=== PATIENT | male | born 1960 | race Caucasian/White ===

== ENCOUNTER 2022-02-27 13:28 | Emergency (ER) | payer OTHER ==
[~2022-02-27] VITALS: Ht 188 cm; Wt 117.9 kg
[2022-02-27] MEDS ORDERED: ONDANSETRON 4 MG/2 ML (SDV) Z0FRAN IVP STA (13:40)
[2022-02-27] MEDS ORDERED: KETOROLAC 30 MG/ML VIAL IVP STA (13:40)
[2022-02-27] MEDS ORDERED: NS IV 1000 ML 1,000 ML IV STA (13:40)
[2022-02-27] MEDS ORDERED: ASPIRIN 81 MG CHEW (CHILDREN'S ASA) PO ONE (13:45)
[2022-02-27 13:48] LABS: BASOPHILS % (AUTO) 0 % (0-10); EOSINOPHILS % (AUTO) 0 % (0-10); HEMATOCRIT 39 % (40-54); LYMPHOCYTES % (AUTO) 11 % (12-44); MEAN CORPUSCULAR HEMOGLOBIN 31 pg (25-34); MEAN CORPUSCULAR HGB CONC 36 g/dL (32-36); MEAN CORPUSCULAR VOLUME 86 fL (80-99); MEAN PLATELET VOLUME 10.1 fL (9.0-12.2); MONOCYTES # (AUTO) 0.7 10^3/uL (0.0-1.0); MONOCYTES % (AUTO) 8 % (0-12); NEUTROPHILS # (AUTO) 7.3 10^3/uL (1.8-7.8); NEUTROPHILS % (AUTO) 80 % (42-75); PLATELET COUNT 149 10^3/uL (130-400); WHITE BLOOD COUNT 9.2 10^3/uL (4.3-11.0)
--- NOTE | 2022-02-27 13:48 | ED Chest Pain ---
General Chief Complaint: Chest Wall Stated Complaint: CHEST PAIN; LT ARM NUMBNESS Source: patient, spouse Exam Limitations: no limitations History of Present Illness Date Seen by Provider: Feb 27, 2022 Time Seen by Provider: 13:30 Initial Comments 61-year-old male presenting with complaints of left-sided rib and chest pain radiating to his left shoulder and left arm numbness/tingling. He reports the arm numbness/tingling he gets from time to time. He states he fell last night and feels like he broke ribs on the left side of his chest. He denies hitting his head or losing consciousness. He denies other injuries from the fall. He states since this morning when he woke up he was feeling like he had pain going into his left shoulder from the chest. He also has had "indigestion" and nausea all day. He had tried taking 400 mg of ibuprofen at 7 AM and again at 11 AM. He also took his blood pressure medications. He states he has had previous evaluation for cardiac problems about 15 years ago and told that everything looked okay. He does follow with a branch service representative, Dr. Santiago, but states that is because of his blood pressure only. Since he continued to have pain and was having the nausea he came in to be evaluated from a heart standpoint. Timing/Duration: constant, 12-24 hours Severity/Quality: moderate, ingestion, sharp Location: other (left side of chest into left shoulder) Radiation: shoulders (left) Activities at Onset: other (after fall last night that injured ribs) Prior CP/Workup: non-cardiac (prior work up in the past and he reports he was told he had no heart problems) Modifying Factors: worse with breathing, worse with coughing, worse with movement ASA po STEEPING PRESS TENDER: No NTG SL STEEPING PRESS TENDER: No Associated Symptoms: No abdominal pain, No back pain, No diaphoresis, No dizziness, No edema, No fatigue, No fever/chills, No headache; heartburn, nausea/vomiting (nausea but no emesis); No rash, No shortness of breath, No swelling/lump in chest, No syncope, No weakness Allergies and Home Medications Allergies Coded Allergies: No Known Drug Allergies (Unverified , 02/27/22) Patient Home Medication List Home Medication List Reviewed: Yes Ondansetron (Ondansetron Odt) 4 Mg Tab.rapdis, 4 MG PO Q6H PRN for NAUSEA/VOMITING Prescribed by: APOLINAR DRIVERRT on 02/27/22 1515 Oxycodone HCl/Acetaminophen (Oxycodone-Acetaminophen 5-325) 5 Mg-325 Mg Tablet, 1 EACH PO Q4H PRN for PAIN-SEVERE (8-10) Prescribed by: APOLINAR DRIVERRT on 02/27/22 1516 Review of Systems Review of Systems Constitutional: No chills, No diaphoresis, No dizziness, No fever EENTM: No Symptoms Reported Respiratory: See HPI Cardiovascular: See HPI Gastrointestinal: See HPI Genitourinary: No Symptoms Reported Musculoskeletal: see HPI Skin: No change in color (no bruising) Psychiatric/Neurological: Paresthesia (tingling in Left arm) Endocrine: No Symptoms Reported Hematologic/Lymphatic: Denies Blood Clots Past Eizlzel-Bntrbq-Gepujg Hx Past Medical History Surgery/Hospitalization HX: Hypertension Physical Exam Vital Signs Vital Signs - First Documented 02/27/22 02/27/22 13:30 13:42 Temp 36.6 Pulse 104 Resp 16 B/P (MAP) 179/91 (120) Pulse Ox 94 O2 Delivery Room Air Capillary Refill : Height, Weight, BMI Height: '" Weight: lbs. oz. kg; BMI Method: General Appearance: No Apparent Distress, Obese HEENT: PERRL/EOMI, Pharynx Normal Neck: Full Range of Motion, Normal Inspection, Non Tender, Supple Respiratory: No Chest Non Tender (tender to palpation left lower lateral ribs. no crepitus or step off); Lungs Clear, Normal Breath Sounds, No Accessory Muscle Use, No Respiratory Distress Cardiovascular: Regular Rate, Rhythm, No Edema, No Murmur, Normal Peripheral Pulses Gastrointestinal: Normal Bowel Sounds, No Pulsatile Mass, Non Tender, Soft Rectal: Deferred Extremity: Normal Capillary Refill, Normal Inspection, No Pedal Edema Neurologic/Psychiatric: Alert, Oriented x3, provisioning analyst II-XII Norm as Tested Skin: Normal Color, Warm/Dry Images 1 - pain to palpation left lower lateral ribs without crepitus or step off Progress/Results/Core Measures Results/Orders Lab Results Laboratory Tests Test 02/27/22 13:41 Range/Units White Blood Count 9.2 4.3-11.0 10^3/uL Red Blood Count 4.53 4.30-5.52 10^6/uL Hemoglobin 14.0 13.3-17.7 g/dL Hematocrit 39 L 40-54 % Mean Corpuscular Volume 86 80-99 fL Mean Corpuscular Hemoglobin 31 25-34 pg Mean Corpuscular Hemoglobin Concent 36 32-36 g/dL Red Cell Distribution Width 12.4 10.0-14.5 % Platelet Count 149 130-400 10^3/uL Mean Platelet Volume 10.1 9.0-12.2 fL Immature Granulocyte % (Auto) 0 % Neutrophils (%) (Auto) 80 H 42-75 % Lymphocytes (%) (Auto) 11 L 12-44 % Monocytes (%) (Auto) 8 0-12 % Eosinophils (%) (Auto) 0 0-10 % Basophils (%) (Auto) 0 0-10 % Neutrophils # (Auto) 7.3 1.8-7.8 10^3/uL Lymphocytes # (Auto) 1.0 1.0-4.0 10^3/uL Monocytes # (Auto) 0.7 0.0-1.0 10^3/uL Eosinophils # (Auto) 0.0 0.0-0.3 10^3/uL Basophils # (Auto) 0.0 0.0-0.1 10^3/uL Immature Granulocyte # (Auto) 0.0 0.0-0.1 10^3/uL Prothrombin Time 12.5 12.2-14.7 SEC INR Comment 0.9 0.8-1.4 Activated Partial Thromboplast Time 26 24-35 SEC Sodium Level 131 L 135-145 MMOL/L Potassium Level 4.0 3.6-5.0 MMOL/L Chloride Level 98 98-107 MMOL/L Carbon Dioxide Level 22 21-32 MMOL/L Anion Gap 11 5-14 MMOL/L Blood Urea Nitrogen 9 7-18 MG/DL Creatinine 0.69 0.60-1.30 MG/DL Estimat Glomerular Filtration Rate 107 BUN/Creatinine Ratio 13 Glucose Level 127 H 70-105 MG/DL Calcium Level 9.2 8.5-10.1 MG/DL Corrected Calcium 8.9 8.5-10.1 MG/DL Magnesium Level 2.0 1.6-2.4 MG/DL Total Bilirubin 0.7 0.1-1.0 MG/DL Aspartate Amino Transf (AST/SGOT) 17 5-34 U/L Alanine Aminotransferase (ALT/SGPT) 21 0-55 U/L Alkaline Phosphatase 48 40-136 U/L Myoglobin 38.5 <72.0 NG/ML Troponin I < 0.30 <0.30 NG/ML Pro-B-Type Natriuretic Peptide 157.3 H <125.0 PG/ML Total Protein 6.8 6.4-8.2 GM/DL Albumin 4.4 3.2-4.5 GM/DL Lipase 18 8-78 U/L My Orders Orders - APOLINAR ROJAS MD Cbc With Automated Diff (02/27/22 13:40) Magnesium (02/27/22 13:40) Ekg Tracing (02/27/22 13:40) Comprehensive Metabolic Panel (02/27/22 13:40) Myoglobin Serum (02/27/22 13:40) Protime With Inr (02/27/22 13:40) Partial Thromboplastin Time (02/27/22 13:40) O2 (02/27/22 13:40) Monitor-Rhythm Ecg Trace Only (02/27/22 13:40) Aspirin Chewable Tablet (Baby Aspirin Ch (02/27/22 13:45) Ed Iv/Invasive Line Start (02/27/22 13:40) Lipase (02/27/22 13:40) Troponin I Fs (02/27/22 13:40) Probnp Fs (02/27/22 13:40) Ribs/Unilateral With Chest (02/27/22 13:40) Ondansetron Injection (Zofran Injectio (02/27/22 13:40) Ketorolac Injection (Toradol Injection) (02/27/22 13:40) Ns Iv 1000 Ml (Sodium Chloride 0.9%) (02/27/22 13:40) Incentive Spirometry (Nursing) Q2H (02/27/22 14:56) Morphine Injection (Morphine Injection (02/27/22 15:09) Medications Given in ED Current Medications Medications Dose Ordered Sig/Attila Route Start Time Stop Time Status Last Admin Dose Admin Aspirin 324 mg ONCE ONCE PO 02/27/22 13:45 02/27/22 13:46 DC 02/27/22 13:47 324 MG Vital Signs/I&O 02/27/22 02/27/22 02/27/22 13:30 13:42 15:31 Temp 36.6 Pulse 104 94 Resp 16 17 B/P (MAP) 179/91 (120) 166/82 Pulse Ox 94 96 O2 Delivery Room Air Room Air Room Air Progress Progress Note #1: Progress Note Obtain electrocardiogram as well as blood work and labs including cardiac enzymes. Chest x-ray with rib films to evaluate for possible fracture or pneumothorax or pleural effusion or infiltrate. Give normal saline 1 L IV fluid bolus for hydration, Zofran 4 mg IV for nausea, Toradol 30 mg IV for rib and chest pain, aspirin 324 mg p.o. for possible cardiac source of pain. Differential diagnosis includes musculoskeletal chest wall pain, Fractured rib, pneumothorax, myocardial infarction, hypertensive urgency, anxiety Progress Note #2: Progress Note Labs are all stable without acute significant abnormality. Chemistry panel and cardiac enzymes show no acute significant abnormality or elevation after over 6 hours of pain. Chest x-ray shows rib fractures of the 10th and 11th posterior rib. There is no pneumothorax or pleural effusion. His blood pressure is elevated and may be secondary to the rib fractures and pain. With negative cardiac enzymes will try treating the pain and counseled on follow-up and return precautions. Use IS to help with expanding lungs to help prevent pneumonia. Pain medicine to help treat for pain and have him check with clinic for continued pain control. Alternate ice and heat to ribs. Initial ECG Impression Date: Feb 27, 2022 Initial ECG Impression Time: 13:34 Initial ECG Rate: 102 Initial ECG Rhythm: S.Tach Initial ECG Comparisson: No Previous ECG Available Comment Sinus tachycardia with a heart rate of 102 bpm. KS interval [address] elevation. QT interval 341 ms with a QTc interval 400 ms. Incomplete right bundle branch block. No prior tracing available for comparison. Diagnostic Imaging Diagonstic Imaging: Xray Plain Films/CT/US/NM/MRI: chest (And ribs) Comments NAME: FERCHO MAJANO [facility] REC#: [id number] PT STATUS: REG ER : 1960 PHYSICIAN: APOLINAR ROJAS MD ADMIT DATE: 02/27/22/ER FS Draft Date of Exam:02/27/22 RIBS/UNILATERAL WITH CHEST INDICATION: Left rib pain, chest pain, and fall yesterday. EXAMINATION: Ribs and unilateral chest 02/27/2022 FINDINGS: Frontal chest with 3 oblique views of the left ribs. There is a slightly displaced fracture of the left posterior 10th rib with questionable nondisplaced fracture line through the left posterior 11th rib as well. Remaining ribs appear intact. The left lung demonstrates no evidence for pneumothorax. Heart and pulmonary vasculature unremarkable with minimal atelectasis at the bases. No effusions. IMPRESSION: 1. Left posterior 10th displaced rib fracture with a possible nondisplaced fracture of the posterior left 11th rib as well. 2. Bibasilar atelectasis. No pneumothorax. Dictated on workstation # [id number] Dict: 02/27/22 1353 Trans: 02/27/22 1438 PIERCE [id number] Interpreted by: STELLA MAHMOOD MD Electronically signed by: Reviewed: Reviewed by Me Departure Impression Primary Impression: Multiple fractures of ribs, left side, initial encounter for closed fracture Additional Impressions: Left-sided chest wall pain Hypertension Qualified Codes: I10 - Essential (primary) hypertension Disposition: HOME, SELF-CARE Condition: Stable Departure-Patient Inst. Decision time for Depature: 15:12 Referrals: CHA HE MD (PCP) Primary Care Physician Patient Instructions: Opioids for Short-Term Treatment of Pain ED, Blunt Chest Trauma ED, Rib Fracture or Bruised Rib ED Add. Discharge Instructions: Use the incentive spirometer to take deep breaths at least 10 times in an hour and use that at least 3-4 times throughout the day. This will help prevent pneumonia by expanding your lungs completely. Make sure to splint your side to help with the pain from the rib fractures when you do this. Use the narcotic pain medicine to help with severe pain. You may also continue to take ibuprofen for pain and inflammation. You could use ice 20 to 30 minutes every few hours as needed to help with the rib pain as well. Check back with your primary provider for continued concerns and issues All discharge instructions reviewed with patient and/or family. Voiced understanding. Scripts Ondansetron (Ondansetron Odt) 4 Mg Tab.rapdis 4 MG PO Q6H PRN for NAUSEA/VOMITING for 5 Days, #20 TAB 0 Refills Prov: APOLINAR ROJAS MD 02/27/22 Oxycodone HCl/Acetaminophen (Oxycodone-Acetaminophen 5-325) 5 Mg-325 Mg Tablet 1 EACH PO Q4H PRN for PAIN-SEVERE (8-10) MDD 6 for 3 Days, #18 TAB 0 Refills Prov: APOLINAR ROJAS MD 02/27/22 APOLINAR ROJAS MD Feb 27, 2022 13:48
[2022-02-27 13:54] LABS: INR 0.9 (0.8-1.4); PROTHROMBIN TIME PATIENT 12.5 SEC (12.2-14.7)
[2022-02-27 14:00] LABS: CALCIUM 9.2 MG/DL (8.5-10.1); CREATININE SERUM 0.69 MG/DL (0.60-1.30)
[2022-02-27 14:01] LABS: ALBUMIN 4.4 GM/DL (3.2-4.5); BILIRUBIN,TOTAL 0.7 MG/DL (0.1-1.0); TOTAL PROTEIN 6.8 GM/DL (6.4-8.2)
--- NOTE | 2022-02-27 14:39 | Diagnostic Imaging Report ---
INDICATION: Left rib pain, chest pain, and fall yesterday. EXAMINATION: Ribs and unilateral chest 02/27/2022 FINDINGS: Frontal chest with 3 oblique views of the left ribs. There is a slightly displaced fracture of the left posterior 10th rib with questionable nondisplaced fracture line through the left posterior 11th rib as well. Remaining ribs appear intact. The left lung demonstrates no evidence for pneumothorax. Heart and pulmonary vasculature unremarkable with minimal atelectasis at the bases. No effusions. IMPRESSION: 1. Left posterior 10th displaced rib fracture with a possible nondisplaced fracture of the posterior left 11th rib as well. 2. Bibasilar atelectasis. No pneumothorax. Dictated by: Dictated on workstation # [id number]
[2022-02-27] MEDS ORDERED: morphine INJ 10 MG/ML 1ML (SYR OR VIAL) IVP STA (15:09)
[2022-02-27] MEDS ORDERED: OXYC1TAB11 PO (15:15)
[2022-02-27] MEDS ORDERED: ONDA4TAB11 PO (15:15)
[2022-02-27 15:31] VITALS: BP 166/82
== END 2022-02-27 15:31 | disposition home or self-care (01) ==
LOC: ER FS 13:32
DX: S22.42XA Multiple fractures of ribs, left side, initial encounter for closed fracture (principal); I10 Essential (primary) hypertension; Z28.310 Unvaccinated for COVID-19; W18.30XA Fall on same level, unspecified, initial encounter
CPT/HCPCS: 36415; 71101; 80053; 83690; 83735; 83874; 83880; 84484; 85025; 85610; 85730; 93005; 93041